=== PATIENT | female | born 1950 | race Caucasian/White ===

== ENCOUNTER 2019-03-27 12:28 | Inpatient (IN) ==
--- NOTE | 2019-03-27 06:29 | Discharge Summary ---
<Ayesha Tomas - Last Filed: 03/27/19 06:27> Date of Encounter: 03/27/19 - Hospital Course Hospital course: Ms. Mcintyre is a 69 year old female - Time Spent with Patient Total time spent providing and/or coordinating discharge services: - Discharge Medications Prescriptions: New Aspirin Enteric Coated [Aspirin EC] 325 mg PO BID 10 Days #20 tablet. Docusate Sodium [Colace] 100 mg PO BID 5 Days #10 capsule OxyCODONE Immed Rel [Roxicodone 5 MG] 5 mg PO Q6HR PRN 5 Days #20 tablet PRN Reason: Severe Pain Continued amLODIPine [Norvasc] 5 mg PO DAILY Tizanidine HCl 4 mg PO TID PRN PRN Reason: Muscle Spasm Omeprazole 20 mg PO DAILY Aspirin [Adult Aspirin] 81 mg PO DAILY Home Medications: Aspirin Enteric Coated [Aspirin EC] 325 mg PO BID 10 Days #20 tablet. 03/27/19 [Rx] Aspirin [Adult Aspirin] 81 mg PO DAILY 03/27/19 [History] Docusate Sodium [Colace] 100 mg PO BID 5 Days #10 capsule 03/27/19 [Rx] Omeprazole 20 mg PO DAILY 03/27/19 [History] OxyCODONE Immed Rel [Roxicodone 5 MG] 5 mg PO Q6HR PRN 5 Days #20 tablet 03/27/19 [Rx] Tizanidine HCl 4 mg PO TID PRN 03/27/19 [History] amLODIPine [Norvasc] 5 mg PO DAILY 03/27/19 [History] Allergies/Adverse Reactions: Allergy/AdvReac Type Severity Reaction Status Date / Time latex Allergy Rash Verified 03/27/19 12:53 Primary care physician: Jack Tapia MD - Patient Status Disposition: Home Health Service Condition: Good - Discharge Instructions Follow Up With: Ayesha Tomas PAC [Physician Networking Technology Instructor] - 04/06/19 9:15 am (Second appointment 04/14/19 @ 9:45am) Wayne Lozada MD [Partnered Physician] - 04/26/19 3:40 pm Additional Instructions: Discharge Instructions: Total Hip Replacement Please call [facility] ([phone]), your Primary Care Physician, or report to the Emergency Room if you have any of the following symptoms: Nausea, vomiting, fever greater that 101.5, swelling, chest pain, shortness of breath, increased pain/redness/drainage/odor for your incision site, numbness/tingling, or any other concerning symptoms. ACTIVITY:Weight-bearing as tolerated for 8 weeks with hip dislocation precautions that physical therapy taught you. You may progress as tolerated under the guidance of your physical therapist. You do not need to sleep with a pillow between your legs. You can also seep on the operative side or on your stomach. Incentive Spirometer 10 times an hour. MEDICATIONS: Upon discharge resume your home medications. Take all the medications as prescribed. Take a stool softener if taking narcotic pain medications. Stool softeners are only effective if you drink enough fluids. Drink 6-8 glass of water or fluids a day, unless this is not allowed for another health problem. Despite using stool softeners, if you haven't had a bowel movement in 3 days, please switch to a gentle laxative. Gentle laxatives are sold over the counter. You should have a bowel movement within 24 hours, if not call the office. You will be discharged from the hospital with a prescription for pain medication. You are encouraged to decrease the use of narcotic pain medication as tolerated. Should you require a refill, please call the office. [facility] prescribes narcotic pain medication for only 4-6 weeks after surgery. If you require pain medication beyond this time period, you may be referred to your Primary Care Physician or to the Pain Clinic for further evaluation. Plan ahead for refills on pain medication as many narcotics either need to be pi cked up at the office or mailed. It is best to call 48-72 hours in advance of needing a prescription refill so you don't run out of medication. To help control the post-operative pain, you may take NSAIDs (Aleve,Advil, Motrin, ibuprofen, naprosyn) or Tylenol as prescribed on the bottle in addition to the pain medication. ANTICOAGULATION (blood thinners): Continue your Aspirin, Lovenox or Coumadin as prescribed to help prevent a blood clot in the leg or in the lungs. As long as your incision remains dry and you tolerate the NSAIDs (Aleve, Advil, Motrin, Ibuprofen, Naprosyn), it is OK to use the NSAIDS while you are taking your anticoagulation medication. Should your incision start to drain, stop the NSAID and contact our office. Common symptoms of blood clot in the legs include: localized pain, swelling, calf tenderness, redness or discoloration of the skin. Blood clot in the lung symptoms include: shortness of breath, rapid pulse, sweating, and chest pain that worsens with deep breathing, coughing up blood, lightheadedness, feelings of anxiety. If you experience any of these symptoms notify your physician immediately, go to the emergency room, or if having trouble breathing, call 911. WOUND CARE: Leave the dressing on for 7 to 10days. You may change the dressing if it is saturated greater than 50%. Do not get the dressing wet at anytime. Wash your hands with antibacterial soap, rinse and dry prior to any wound care. If you have julius the visiting nurse or rehab facility can remove the stapes 10-14 days after surgery and place steri-strips across the wound. Leave the steri-strips in place until they fall off on their own. You may let water from the shower run on top of the steri-strips. If you do not have a visiting nurse or rehab facility, you will need to return to the office at 10-14 days for the julius to be removed. If you have itching or redness around the dressing call the office. FOLLOW-UP: Please follow up with your surgeon in the orthopedic clinic in 6 weeks from the day of surgery. If you have julius that need to be removed, you will need to come back to the office in 10-14 days from the day of surgery. <Ayesha Ware - Last Filed: 03/29/19 12:55> - NOTES TO OUTPATIENT PROVIDER Notes to Outpatient Provider: Home health to repeat CBC in 48 hrs to monitor Hgb/Hct Orders not resulted at time of discharge: Pending orders 03/27/19 01:00 XR hip complete RT [XR] Routine Hemoglobin and Hematocrit [HEME] Routine Date of Encounter: 03/29/19 Time of Encounter: 12:30 - Discharge Diagnosis (1) Status post total hip replacement, right Priority: Primary Status: Acute (2) Osteoarthritis of right hip Priority: Primary Status: Chronic Qualifiers: Osteoarthritis type: unspecified Qualified Code(s): M16.11 - Unilateral primary osteoarthritis, right hip (3) HTN (hypertension) Priority: Secondary Status: Chronic Qualifiers: Hypertension type: unspecified Qualified Code(s): I10 - Essential (primary) hypertension (4) Obesity (BMI 30-39.9) Priority: Secondary Status: Chronic (5) History of DVT (deep vein thrombosis) Priority: Secondary Status: Chronic - Hospital Course Hospital course: Ms. Mcintyre is a 69 year old female s/p right THR 03/27/19 with medical history of HTN, obesity and h/o DVT. She participated in therapy and had an uneventful hospital course. She is stable for discharge and will follow up in [facility] office next week. PCR - POD#2 s/p right THR 03/27/19 Patient seen at bedside, without complaints. A&O x 3. States she is feeling really well and better than even before surgery. Afebrile, vital signs stable. Labs reviewed. H/H - 9.3/29.1 decreased from yesterday, asymptomatic. Will have repeat labs in 48 hrs to monitor. WBC/neutrophils improved Pain control: adequate Participating in PT. All questions and concerns addressed. Educated on use of incentive spirometer. Encouraged ambulation and proper hydration. Patient educated on post-operative restrictions and post-operative care. Assessment and plan: Continue with postoperative care Discharge plan: Home with home health today - Time Spent with Patient Total time spent providing and/or coordinating discharge services: Date of admission: 03/27/19 Primary care physician: Jack Tapia MD Consults: 03/27/19 17:24 Consult to Nurse Navigator [CONS] Routine Comment: ortho navigator Consult to Nutrition [CONS] Routine Comment: Consulting Provider: NUTRITION Reason for Dietary Consult: Other Other:: Proper nutrition to facilitate wound healing Consult to Occupational Therapy [CONS] Routine Comment: Evaluate, develop and implement POC Reason for Consult: total hip replacement Does patient have active BEDREST order?: No Is patient medically & hemodynamically stable?: Yes Consult to Physical Therapy [CONS] Routine Comment: Evaluate, develop and implement POC Reason for Consult: total hip replacement Does patient have active BEDREST order?: No Is patient medically & hemodynamically stable?: Yes Consult to Car Greaser [CONS] Routine Reason for SW Consult: post op joint replacement RT Post Op Consult [CONS] Routine Discharging clinician: Wayne Lozada Anticipated date of discharge: 03/29/19 Labs on day of discharge: Short CBC 03/29/19 Range/Units 03:31 WBC 12.1 H (4.3-11.1) K/mcL Hgb 9.3 L D (11.5-15.4) g/dL Hct 29.1 L (35.3-44.9) % Plt Count 222 (140-400) K/mcL Neutrophils # 7.8 (1.6-8.9) K/mcL BMP 03/29/19 Range/Units 03:31 Sodium 143 (136-145) mEq/L Potassium 3.8 (3.5-5.1) mEq/L Chloride 105 (98-107) mEq/L Carbon Dioxide 27 (23-29) mEq/L BUN 16 (8-23) mg/dL Creatinine 0.83 (0.60-1.20) mg/dL Glucose 138 H (70-105) mg/dL Calcium 8.3 L (8.6-10.3) mg/dL - Impressions Hip X-Ray 03/27/19 01:00 IMPRESSION: Total hip arthropasty without acute hardware complication. D/ / Collins Puckett MD / Collins Puckett MD Interpreting Provider: Collins Puckett MD - Patient Status Functional capacity at discharge: uses cane/walker Overall status at discharge: patient is progressing back to baseline - Diet and Activity Activity: ambulate only with your walker, as per physical therapy Diet: advance to your usual diet
--- NOTE | 2019-03-27 12:24 | Physician Discharge Referral ---
Home Health/Hosp Referral Info Transfer to: Home Health Attending Provider: Dr. Lozada - Diagnosis (1) Status post total hip replacement, right Priority: Primary Status: Acute (2) Osteoarthritis of right hip Priority: Primary Status: Chronic (3) HTN (hypertension) Priority: Secondary Status: Chronic (4) Obesity (BMI 30-39.9) Priority: Secondary Status: Chronic (5) History of DVT (deep vein thrombosis) Priority: Secondary Status: Chronic - Respiratory Orders None Smoking Cessation: Smoking cessation has been advised. For more information, call the [place] Tobacco Quit Line at 0-014-FKQU-NOW. - Diet/Nutrition Diet/Nutrition Orders: Regular - Activity Activity Orders: Ambulate, Chair, Walker - Services Needed Following services are medically necessary services: Nursing, Home Health Aide, Physical Therapy, Occupational Therapy Home Care Orders: Opsite dressing, leave intact until first post-operative visit. If dressing becomes >50% saturated, contact office, remove dressing and place appropriate dressing in its place. Do not allow for dressing to get wet. Zipline/Nome in place, plan to remove at post-operative day #14-16. Total Joint Precautions x 6 weeks Apply cold therapy wrap 3-6x/day for 20 minutes at a time. Encourage ambulation throughout the day Use Incentive spirometer 10x/hour. Elevate affected extremity above heart as tolerated. Brace: Wear hip abductor brace at night x 6 weeks. * Repeat CBC in 48 hrs monitoring Hgb/Hct - Transfer Medications Home Medications: Aspirin Enteric Coated [Aspirin EC] 325 mg PO BID 10 Days #20 tablet. 03/27/19 [Rx] Aspirin [Adult Aspirin] 81 mg PO DAILY 03/27/19 [History] Docusate Sodium [Colace] 100 mg PO BID 5 Days #10 capsule 03/27/19 [Rx] Omeprazole 20 mg PO DAILY 03/27/19 [History] OxyCODONE Immed Rel [Roxicodone 5 MG] 5 mg PO Q6HR PRN 5 Days #20 tablet 03/27/19 [Rx] Tizanidine HCl 4 mg PO TID PRN 03/27/19 [History] amLODIPine [Norvasc] 5 mg PO DAILY 03/27/19 [History] Allergies/Adverse Reactions: Allergy/AdvReac Type Severity Reaction Status Date / Time latex Allergy Rash Verified 07/01/19 12:53 Certification: Further, I certify that my clinical findings support that this patient is homebound (i.e. absences from home require considerable and taxing effort and are for medical reasons or rastafari services or infrequently or short duration when for other reasons) because: Homebound Reason: Post-surgery restriction and or conditions limit ability to leave home Attestation: My signature below is to certify that this patient is under my care and that I, or nurse practitioner, or a physician hospital medical assistant working with me, has a [id number] encounter with this patient.
[2019-03-27] MEDS ORDERED: CeFAZolin Syr 2,000MG/20 ML 2,000 MG/20 ML SYRINGE IVPB ONE (12:55)
[2019-03-27] MEDS ORDERED: Ringers Solution, Lactated 1,000 ML IVC SCH ×2 (13:00→13:45)
--- NOTE | 2019-03-27 13:01 | History & Physical Report ---
Date of Encounter: 03/27/19 Time of Encounter: 13:00 24 Hour HP Update - Instructions Instructions: If the History and Physical is less than 30 days old and was completed prior to A.M. admission and or procedure and has NOT been updated on calendar day of procedure please complete this update prior to performing procedure. - Update Patient reports changes in Medical Condition: No Changes in examination, assessment, or condition: No Changes in Medication: No Preop tests/diagnostics Reviewed: Yes Surgery Remains Indicated: Yes Consent for Planned Operative Procedure(s) Verified: Yes - Pre-Operative Checklist Preoperative Checklist Indicated: No Prophylactic Antibiotic Ordered: Yes Is VTE Prophylaxis Indicated?: Yes
--- NOTE | 2019-03-27 13:03 | Anesthesia Evaluation PreOp ---
Date of Encounter: 03/27/19 Time of Encounter: 13:01 - Past History Planned Operation: Right Robotic total hip arthroplasty Cardiac History: HTN Pulmonary History: Denies Any Significant HX TEACHER EDUCATION INSTRUCTOR History: Denies Any Significant HX Other Medical History: GERD, Other (hx of dvt, hyperkalemia) Anesthesia History: No Prior Anesthetic Complications, Past Anesthesia (bunion correction, shivani) Alcohol Use: none Drug use: none Medications and Allergies Aspirin Enteric Coated [Aspirin EC] 325 mg PO BID 10 Days #20 tablet. 03/27/19 [Rx] Aspirin [Adult Aspirin] 81 mg PO DAILY 03/27/19 [History] Docusate Sodium [Colace] 100 mg PO BID 5 Days #10 capsule 03/27/19 [Rx] Omeprazole 20 mg PO DAILY 03/27/19 [History] OxyCODONE Immed Rel [Roxicodone 5 MG] 5 mg PO Q6HR PRN 5 Days #20 tablet 03/27/19 [Rx] Tizanidine HCl 4 mg PO TID PRN 03/27/19 [History] amLODIPine [Norvasc] 5 mg PO DAILY 03/27/19 [History] Allergy/AdvReac Type Severity Reaction Status Date / Time latex Allergy Rash Verified 03/27/19 12:53 - Meds/Allergy Pre-op Review Medications Reviewed: Yes Allergies Reviewed: Yes Beta Blockers on Current Med List: No Anesthesia Results - Labs Laboratory Tests 03/20/19 03/20/19 10:35 10:35 WBC 13.4 H Hgb 15.0 Hct 47.2 H Plt Count 350 Sodium 141 Potassium 5.4 H Chloride 105 Carbon Dioxide 28 BUN 12 Creatinine 0.72 - Imaging EKG: report reviewed ( Interpretive Statements SINUS RHYTHM Electronically Signed On 03-22-2019 12:38:14 EDT by Deejay Lema) Anesthesia Exam Vital Signs/O2 Sat, Most Current Temp Pulse Resp BP Pulse Ox 98.8 F 112 18 144/87 95 03/27/19 12:51 03/27/19 12:51 03/27/19 12:51 03/27/19 12:51 03/27/19 12:51 - HEENT Pupil (Motor): Pupils equal, EOMI Mallampati: II Teeth: Edentulous Oral Opening: Greater than 3 - TEACHER EDUCATION INSTRUCTOR LOC: Oriented TEACHER EDUCATION INSTRUCTOR Motor: Normal RUE, Normal LUE, Normal RLE, Normal LLE, Normal Face TEACHER EDUCATION INSTRUCTOR Sensory: Normal: RUE, LUE, RLE, LLE, Face - Cardiac Rhythm: Regular - Pulmonary Breath Sounds: bilateral Clear Respiratory Effort: Symmetrical Anesthesia Assess/Plan ASA Score: 2 Level of consciousness: Cooperative Anesthetic Plan: General Reason for No Neuroaxial/Regional Block: Patient refusal Monitoring Plan: Standard Monitors Recovery Plan: PACU
[2019-03-27] MEDS ORDERED: *HR* FentaNYL (PF) 100 MCG/2 ML VIAL ONE ×2 (13:04→15:16)
[2019-03-27] MEDS ORDERED: *HR* Succinylcholine 200 MG/10 ML VIAL IVP ONE (13:04)
[2019-03-27] MEDS ORDERED: *HR* Propofol 200 MG/20 ML VIAL IVP ONE (13:05)
[2019-03-27] MEDS ORDERED: *HR* Midazolam HCl 2 MG/2 ML VIAL ONE (13:05)
[2019-03-27] MEDS ORDERED: Lidocaine -MPF 2% 2 ML VIAL ONE ×2 (13:10→15:11)
[2019-03-27] MEDS ORDERED: Ondansetron 4 MG/2 ML VIAL ONE (13:10)
[2019-03-27] MEDS ORDERED: Celecoxib 200 MG CAPSULE PO ONE (13:32)
[2019-03-27] MEDS ORDERED: *HR* OxyCODONE ER (12 HR) 10 MG TABLET PO ONE (13:32)
[2019-03-27] MEDS ORDERED: Gabapentin 300 MG CAPSULE PO ONE (13:32)
[2019-03-27] MEDS ORDERED: Acetaminophen IV 1,000 MG/100 ML INFUS..BTL IVPB ONE (13:32)
[2019-03-27] MEDS ORDERED: *HR* Meperidine 25 MG/ML SYRINGE IVP PRN (13:34)
[2019-03-27] MEDS ORDERED: *HR* Promethazine 25 MG/ML VIAL IVP PRN ×2 (13:34→17:24)
[2019-03-27] MEDS ORDERED: *HR* HYDROmorphone (PF) 1 MG/ML SYRINGE IVP PRN (13:34)
[2019-03-27] MEDS ORDERED: Ondansetron 4 MG/2 ML VIAL IVP ONE (13:34)
[2019-03-27] MEDS ORDERED: *HR* Rocuronium Bromide 50 MG/5 ML VIAL ONE (13:34)
[2019-03-27] MEDS ORDERED: Lidocaine -MPF 4% 5 ML AMPUL ONE (13:35)
[2019-03-27] MEDS ORDERED: Ethanol\\Acetic Acid\\Na Ace\\Ben 1,000 ML IRRIG.SOLN IR ONE (13:41)
[2019-03-27] MEDS ORDERED: Dexamethasone 4 MG/ML VIAL ONE (14:59)
[2019-03-27] MEDS ORDERED: *HR* HYDROMORPHONE 2 MG/ML VIAL ONE (15:16)
[2019-03-27] MEDS ORDERED: Ketorolac 30 MG/ML VIAL ONE (15:18)
[2019-03-27] MEDS ORDERED: Neostigmine Methylsulfate 3 MG/3 ML SYRINGE ONE (15:39)
--- NOTE | 2019-03-27 15:52 | Orthopedic Operative Note ---
Date of procedure: 03/27/19 Pre-op diagnosis: Right hip arthritis Post-op diagnosis: same Procedure: Procedure: Right Total Hip Replacment robotic-assisted Estimated blood loss: 200 cc Hardware: Metal and polyethylene replacement. Yelena DM Cup: 48 cup Femoral size 4 Anato antevertedstem Head: 8 head with Jamila Procedural Notes: Grade 4 arthritic changes femoral head acetabular socket, procedure performed with robotic assistance. 6 mm short operative versus nonoperative leg as measured by preoperative CT scan Operative procedure: The patient was brought to the operating room and placed on the operating room table. After general anesthesia was administered the patient was placed in the lateral decubitus position with the operative leg up. All pressure points were padded appropriately and the head was stabilized in the neutral position. The operative extremity was prepped and draped in the sterile surgical fashion patient received IV antibiotic prior to skin incision. 3 Steinmann pins were placed in the iliac crest 3 cm proximal to the anterior superior iliac spine this was for the robotic-assisted sensor. This was done through a small 2 cm incision. A standard posterior approach is made to the operative hip, the incision was made through the skin and subcutaneous tissue hemostasis was obtained with Bovie cautery. Using careful sharp dissection the fascia was identified and incised exposing the external rotators. The greater trochanter was marked, and length was measured at this time utilizing robotic assistance. The external rotators were released off the greater trochanter and tagged with #2 FiberWire suture. The capsule was T'd open and the hip was brought into internal rotation. Patient noted to have grade 4 arthritic changes femoral head. The femoral neck cut was made at the appropriate level roughly 15 mm proximal to the lesser trochanter aced on preoperative templating. An anterior capsulotomy was performed for the anterior retractor. Soft tissues removed from the acetabulum. Patient noted to have grade 4 arthritic changes acetabulum. The acetabulum reference point was confirmed. The acetabulum was then mapped with robotic assistance. Based on the preoperative plan the acetabulum was reamed in one step with a 48 reamer. The 48 acetabulum was impacted with robotic assistance and 39 degrees of abduction and 25 degrees of anteversion. The hip was brought back in to internal rotation and prepared with the box truck driver followed by the canal finder followed by the reaming process to a size 12 broaching process in 20 degrees anteversion. It was broached up to the appr opriate size 4 Trial reduction revealed leg lengths close to normal. The femoral implant was impacted in place in 20 degrees of anteversion. Trial reduction found the hip to be stable with 8 head and Jamila. The trials were removed and the real implants were impacted in place. The hip was reduced, patient had robotic confirmed leg length of 10 mm longer than the contralateral side. The hip had excellent stability with forward flexion to 90 degrees adduction of 30 degrees and internal rotation of 60 degrees. The hip had no shuck. The hip sat with an antibacterial solution. It was irrigated out with 2 L of pulse irrigation. The Steinmann pins were removed. The hip was closed by the PA. The deep tissue was irrigated and closed deep with #1 PDS suture superficially with 0 PDS suture and skin was closed with Dermabond and zip tie. The patient was placed in a sterile dressing and abduction pillow. The patient was extubated and transferred to the recovery room in stable condition. Anesthesia: GETA Surgeon: Wayne Lozada Was there an instructional support assistant present: Yes Manager Of Organizational Development: Ayesha Tomas Estimated blood loss (cc): 200 Condition: stable Disposition: PACU
--- NOTE | 2019-03-27 17:05 | Anesthesia Evaluation Post Op ---
Date of Encounter: 03/27/19 Time of Encounter: 17:04 - Vital Signs Vital Signs: Vital Signs/O2 Sat, Most Current Temp Pulse Resp BP Pulse Ox 98.6 F 76 15 128/68 96 03/27/19 16:48 03/27/19 16:48 03/27/19 16:48 03/27/19 16:48 03/27/19 16:48 - Lungs Lungs: Clear Ascult./Percussion - Cardiovascular Regular Rate - Mental Status Mental Status: Alert & Oriented, Answers Appropriately - Pain Pain Scale: 0 Pain Scale used: Numeric (1 - 10) - Nausea Vomiting Nausea Vomiting: Not Present - Hydration Hydration: Ice chips - Discharge PostOp Status: Transfer Patient to floor
[2019-03-27 17:17] LABS: Hematocrit 37.6 % (35.3-44.9); Hemoglobin 11.9 g/dL (11.5-15.4)
[2019-03-27] MEDS ORDERED: HYDROcodone BIT/Homatropine 5 MG TABLET PO PRN (17:24)
[2019-03-27] MEDS ORDERED: Ondansetron 4 MG/2 ML VIAL IVP PRN (17:24)
[2019-03-27] MEDS ORDERED: MOM Conc 10 ML UD.LIQ PO PRN (17:24)
[2019-03-27] MEDS ORDERED: Naloxone 0.4 MG/ML INJ IVP PRN (17:24)
[2019-03-27] MEDS ORDERED: traMADol 50 MG TABLET PO PRN (17:24)
[2019-03-27] MEDS ORDERED: Sennosides 8.6 MG TABLET PO PRN (17:24)
[2019-03-27] MEDS ORDERED: Temazepam 15 MG CAPSULE PO PRN (17:24)
[2019-03-27] MEDS ORDERED: tiZANidine 4 MG TABLET PO PRN (17:24)
[2019-03-27] MEDS ORDERED: *HR* Enoxaparin 30 MG/0.3 ML SYRINGE SQ SCH (18:00)
[2019-03-27] MEDS: *HR* Enoxaparin 30 MG/0.3 ML SYRINGE SQ SCH (18:24)
[2019-03-27] MEDS: *HR* OxyCODONE Immed Rel 5 MG TABLET PO PRN (18:24)
[2019-03-27] MEDS: Ascorbic Acid 500 MG TABLET PO SCH (18:24)
[2019-03-27] MEDS: Ringers Solution, Lactated 1,000 ML IVC SCH (19:49)
[2019-03-27] MEDS: Gabapentin 300 MG CAPSULE PO SCH (21:22)
[2019-03-28 01:29] LABS: Basophils % 0.2 %; Hematocrit 33.3 % (35.3-44.9); Hemoglobin 10.8 g/dL (11.5-15.4); Immature Granulocytes % 0.6 % (0-4); Lymphocytes % 6.4 %; Mean Corpuscular HGB Conc 32.4 g/dL (31.6-35.5); Mean Corpuscular Hemoglobin 29.8 pg (28.0-33.3); Mean Platelet Volume 10.2 fL (9.4-12.4); Monocytes # 0.8 K/mcL (0.0-1.3); Neutrophils # 14.1 K/mcL (1.6-8.9); Platelet Count 255 K/mcL (140-400); Red Blood Count 3.62 M/mcL (3.82-4.97); Red Cell Distribution Width 12.1 % (11.5-14.5); Segmented Neutrophils % 87.8 %
[2019-03-28 01:45] LABS: BUN/Creatinine Ratio 15 (6-26); Blood Urea Nitrogen 13 mg/dL (8-23); Calcium 8.4 mg/dL (8.6-10.3); Carbon Dioxide 26 mEq/L (23-29); Chloride 105 mEq/L (98-107); Glucose 169 mg/dL (70-105); Osmolality,Calculated 288 (280-300); Potassium 4.7 mEq/L (3.5-5.1); Sodium 137 mEq/L (136-145); eGFR For African Americans > 60 (> 60); eGFR For Non-African Americans > 60 (> 60)
[2019-03-28] MEDS: *HR* OxyCODONE Immed Rel 5 MG TABLET PO PRN ×3 (03:53→23:07)
[2019-03-28] MEDS: *HR* Enoxaparin 30 MG/0.3 ML SYRINGE SQ SCH ×2 (06:06→18:06)
[2019-03-28] MEDS ORDERED: CefTRIAXone 1,000 MG VIAL IM ONE (06:36)
--- NOTE | 2019-03-28 06:37 | Orthopedics Progress Note ---
Date of Encounter: 03/28/19 Time of Encounter: 06:37 Subjective Interval history: Patient was seen this morning doing well without complaints. Afebrile vital signs stable. Operative extremity: Neurovascularly intact Dressing clean dry and intact Calves nontender Assessment and plan: Continue with postoperative care Hematocrit 33 Objective Vital signs: Vital Signs Temp Pulse Resp BP Pulse Ox 03/28/19 04:07 98.9 F 63 15 116/69 92 03/27/19 23:18 99.4 F 75 16 101/60 96 03/27/19 19:56 99.3 F 89 16 115/70 98 03/27/19 18:54 98.3 F 82 14 120/57 95 03/27/19 17:54 97.7 F 80 12 128/76 96 03/27/19 17:28 95 03/27/19 17:20 98.1 F 72 14 126/77 97 03/27/19 16:48 98.6 F 76 15 128/68 96 03/27/19 16:38 72 14 130/70 97 03/27/19 16:28 91 15 143/71 95 03/27/19 16:18 100.2 F H 84 16 156/77 97 03/27/19 12:51 98.8 F 112 18 144/87 95 Intake and Output 03/27/19 03/27/19 03/28/19 15:59 23:59 07:59 Intake Total 1120 / 1220 100 / 1220 50 / 50 Output Total 200 / 200 Balance 920 / 1020 100 / 1020 50 / 50 Intake: IV Fluids 1120 / 1220 100 / 1220 50 / 50 Lactated Ringers 1,000 ML @ 25 1000 / 1000 mls/hr IVC .Q24H [facility] Rx#: [id number] Ofirmev 1,000 mg/100 ml 1,000 100 / 100 mg In 100 ml @ 400 mls/hr IVPB ONCE ONE Rx#:[id number] Ancef Syringe 2,000 MG/20 ML 2, 20 / 20 000 mg In 20 ml @ 200 mls/hr IVPB PREOP ONE Rx#:[id number] Ancef 2,000 MG In 0.9 % Sodium 100 / 100 50 / 50 Chloride 100 ML @ 200 mls/hr IVPB Q8H [facility] Rx#:[id number] Output: Estimated Blood Loss 200 / 200 Other: # Voids 1 1 Weight 88.451 kg 88.5 kg Patient Weight 03/28/19 23:59 Weight 88.5 kg - Labs CBC & BMP: 03/28/19 01:14 03/28/19 01:14 Labs: Abnormal lab results WBC 16.0 K/mcL (4.3-11.1) H 03/28/19 01:14 RBC 3.62 M/mcL (3.82-4.97) L 03/28/19 01:14 Hgb 10.8 g/dL (11.5-15.4) L 03/28/19 01:14 Hct 33.3 % (35.3-44.9) L 03/28/19 01:14 14.1 K/mcL (1.6-8.9) H 03/28/19 01:14 Glucose 169 mg/dL (70-105) H 03/28/19 01:14 Calcium 8.4 mg/dL (8.6-10.3) L 03/28/19 01:14 Consult Discharge Plan - Plan Referrals: Jack Tapia MD [Primary Care Provider] -
[2019-03-28] MEDS: Ascorbic Acid 500 MG TABLET PO SCH ×2 (07:58→16:00)
[2019-03-28] MEDS: Aspirin Enteric Coated 81 MG Tablet PO SCH (07:58)
[2019-03-28] MEDS: Gabapentin 300 MG CAPSULE PO SCH ×3 (07:58→20:21)
[2019-03-28] MEDS: amLODIPine 5 MG TABLET PO SCH (07:59)
[2019-03-28] MEDS: Multivit/Ca/Min/Fe/FA 1 TAB TABLET PO SCH (07:59)
[2019-03-28] MEDS: Ringers Solution, Lactated 1,000 ML IVC SCH (10:39)
--- NOTE | 2019-03-28 14:48 | Event Note ---
Date of Encounter: 03/28/19 Time of Encounter: 11:30 PCR - POD#1 s/p right THR 03/27/19 Patient seen at bedside, without complaints. A&O x 3 Afebrile, vital signs stable. Labs reviewed. H/H - 10.8/33.3 stable, asymptomatic Will continue to monitor elevation in WBC/neutrophils - expect to decrease tomorrow Pain control: adequate Participating in PT. All questions and concerns addressed. Educated on use of incentive spirometer. Encouraged ambulation and proper hydration. Patient educated on post-operative restrictions and post-operative care. Assessment and plan: Continue with postoperative care Discharge plan: Home with home health possibly tomorrow
[2019-03-29] MEDS: *HR* OxyCODONE Immed Rel 5 MG TABLET PO PRN ×3 (03:38→12:59)
[2019-03-29 04:50] LABS: Basophils # 0.1 K/mcL (0.0-0.2); Basophils % 0.4 %; Eosinophils # 0.2 K/mcL (0.0-0.6); Eosinophils % 1.6 %; Hematocrit 29.1 % (35.3-44.9); Hemoglobin 9.3 g/dL (11.5-15.4); Immature Granulocytes % 0.6 % (0-4); Lymphocytes # 2.3 K/mcL (0.6-4.6); Lymphocytes % 18.9 %; Mean Corpuscular Hemoglobin 30.2 pg (28.0-33.3); Mean Corpuscular Volume 94.5 fL (83.0-100.0); Mean Platelet Volume 10.4 fL (9.4-12.4); Monocytes # 1.7 K/mcL (0.0-1.3); Neutrophils # 7.8 K/mcL (1.6-8.9); Platelet Count 222 K/mcL (140-400); Red Blood Count 3.08 M/mcL (3.82-4.97); Red Cell Distribution Width 12.5 % (11.5-14.5); Segmented Neutrophils % 64.5 %; White Blood Count 12.1 K/mcL (4.3-11.1)
[2019-03-29 05:09] LABS: BUN/Creatinine Ratio 19 (6-26); Blood Urea Nitrogen 16 mg/dL (8-23); Calcium 8.3 mg/dL (8.6-10.3); Carbon Dioxide 27 mEq/L (23-29); Chloride 105 mEq/L (98-107); Glucose 138 mg/dL (70-105); Osmolality,Calculated 299 (280-300); Potassium 3.8 mEq/L (3.5-5.1); Sodium 143 mEq/L (136-145); eGFR For African Americans > 60 (> 60); eGFR For Non-African Americans > 60 (> 60)
[2019-03-29] MEDS: *HR* Enoxaparin 30 MG/0.3 ML SYRINGE SQ SCH (05:20)
[2019-03-29] MEDS: amLODIPine 5 MG TABLET PO SCH (08:02)
[2019-03-29] MEDS: Aspirin Enteric Coated 81 MG Tablet PO SCH (08:27)
[2019-03-29] MEDS: Ascorbic Acid 500 MG TABLET PO SCH (08:28)
[2019-03-29] MEDS: Multivit/Ca/Min/Fe/FA 1 TAB TABLET PO SCH (08:28)
[2019-03-29] MEDS: Gabapentin 300 MG CAPSULE PO SCH (08:28)
[2019-03-29 11:17] VITALS: BP 134/77
--- NOTE | 2019-03-29 11:46 | Orthopedics Progress Note ---
Date of Encounter: 03/29/19 Time of Encounter: 11:45 - Assessment and Plan (1) Acute blood loss anemia Current Visit: Yes Status: Acute Subjective Interval history: Patient was seen this morning doing well without complaints. Afebrile vital signs stable. Operative extremity: Neurovascularly intact Dressing clean dry and intact Calves nontender Assessment and plan: Continue with postoperative care Plan for discharged today Objective Vital signs: Vital Signs Temp Pulse Resp BP Pulse Ox 03/29/19 11:15 97.5 F L 81 18 134/77 96 03/29/19 06:55 98.2 F 85 18 108/69 93 03/29/19 03:35 97.3 F L 67 18 119/73 94 03/29/19 00:03 98.2 F 74 17 102/49 95 03/28/19 19:57 99.2 F 80 16 122/69 92 03/28/19 15:28 99 F 83 15 114/66 95 Intake and Output 03/28/19 03/29/19 03/29/19 23:59 07:59 15:59 Intake Total 170 / 580 240 / 240 Balance 170 / 580 240 / 240 Intake: Oral 170 / 530 240 / 240 Other: Meal Dinner Breakfast Percent of Meal Consumed 75% 20% # Voids 1 1 - Labs CBC & BMP: 03/29/19 03:31 03/29/19 03:31 Labs: Abnormal lab results WBC 12.1 K/mcL (4.3-11.1) H 03/29/19 03:31 RBC 3.08 M/mcL (3.82-4.97) L 03/29/19 03:31 Hgb 9.3 g/dL (11.5-15.4) L D 03/29/19 03:31 Hct 29.1 % (35.3-44.9) L 03/29/19 03:31 14.1 K/mcL (1.6-8.9) H 03/28/19 01:14 1.7 K/mcL (0.0-1.3) H 03/29/19 03:31 Glucose 138 mg/dL (70-105) H 03/29/19 03:31 Calcium 8.3 mg/dL (8.6-10.3) L 03/29/19 03:31 - VTE Documentation of Mechanical Device: Venous foot pump, device Consult Discharge Plan - Plan Referrals: Jack Tapia MD [Primary Care Provider] -
== END 2019-03-29 13:40 | disposition home health service (06) | DRG 470 ==
LOC: SAMDAY 12:28 → 3NENU 16:51
PROVIDERS: ADMIT Orthopaedic Surgery; ATTEND Orthopaedic Surgery

== ENCOUNTER 2022-05-06 06:20 | Observation (INO) ==
[2022-05-06] MEDS ORDERED: Famotidine 20 MG/2 ML VIAL IVP ONE (06:30)
[2022-05-06] MEDS ORDERED: Acetaminophen IV 1,000 MG/100 ML BAG IVPB ONE (06:30)
[2022-05-06] MEDS ORDERED: tiZANidine 4 MG TABLET PO SCH (06:30)
[2022-05-06] MEDS ORDERED: Celecoxib 100 MG CAPSULE PO ONE (06:30)
[2022-05-06] MEDS ORDERED: CeFAZolin Syr 2,000MG/20 ML 2,000 MG/20 ML SYRINGE IVPB ONE (06:47)
[2022-05-06] MEDS ORDERED: *HR* FentaNYL (PF) 100 MCG/2 ML VIAL ONE ×2 (06:59→11:05)
[2022-05-06] MEDS ORDERED: Lidocaine -MPF 2% 5 ML VIAL ONE (06:59)
[2022-05-06] MEDS ORDERED: *HR* Rocuronium Bromide 50 MG/5 ML VIAL ONE (06:59)
[2022-05-06] MEDS ORDERED: *HR* Propofol 200 MG/20 ML VIAL IVP ONE (06:59)
[2022-05-06] MEDS ORDERED: *HR* Succinylcholine 200 MG/10 ML VIAL IVP ONE (06:59)
[2022-05-06] MEDS ORDERED: Ondansetron 4 MG/2 ML VIAL ONE (06:59)
[2022-05-06] MEDS ORDERED: *HR* Remifentanil 2 MG VIAL IVP ONE (06:59)
[2022-05-06] MEDS ORDERED: Lidocaine HCL 4 ML Topical Solution (Laryng-O-Jet Kit Sterile Pak) TP ONE (06:59)
[2022-05-06] MEDS ORDERED: Vancomycin 1,250 MG/262.5 ML IV.SOLN IVPB ONE (07:00)
[2022-05-06] MEDS ORDERED: Ringers Solution, Lactated 1,000 ML IVC SCH (07:00)
[2022-05-06] MEDS ORDERED: *HR* Phenylephrine 10 MG/ML VIAL ONE (07:07)
[2022-05-06] MEDS ORDERED: Ondansetron 4 MG/2 ML VIAL IVP PRN ×2 (07:08→13:01)
[2022-05-06] MEDS ORDERED: *HR* OxyCODONE Immed Rel 5 MG TABLET PO PRN (07:08)
[2022-05-06] MEDS ORDERED: *HR* FentaNYL (PF) 100 MCG/2 ML VIAL IVP PRN (07:08)
[2022-05-06] MEDS ORDERED: Vancomycin 1,000 MG VIAL ONE (07:18)
[2022-05-06] MEDS ORDERED: Ketamine HCL *QUVA* 50mg (1mL) SYRINGE ONE (07:19)
[2022-05-06] MEDS ORDERED: *HR* Midazolam HCl 2 MG/2 ML VIAL ONE (07:27)
[2022-05-06] MEDS ORDERED: EPHEDrine 50 MG/ML VIAL ONE (08:01)
[2022-05-06] MEDS ORDERED: Ringers Solution, Lactated 1,000 ML ONE (11:52)
[2022-05-06] MEDS: *HR* HYDROmorphone PF 0.5 MG/0.5 ML SYRINGE IVP PRN ×2 (12:19→12:29)
[2022-05-06] MEDS ORDERED: Naloxone 0.4 MG/ML INJ IVP PRN (13:01)
[2022-05-06] MEDS ORDERED: tiZANidine 4 MG TABLET PO PRN (13:01)
[2022-05-06] MEDS ORDERED: diazePAM 5 MG TABLET PO PRN (14:42)
[2022-05-06] MEDS: Ringers Solution, Lactated 1,000 ML IVC SCH ×2 (14:53→22:41)
[2022-05-06] MEDS: CeFAZolin 2 GM/120 ML BAG IVPB SCH (15:32)
[2022-05-06 17:23] LABS: Basophils % 0.3 %; Eosinophils % 0.1 %; Hematocrit 34.6 % (35.3-44.9); Hemoglobin 11.1 g/dL (11.5-15.4); Immature Granulocytes % 1.1 % (0-4); Lymphocytes # 1.4 K/mcL (0.6-4.6); Mean Corpuscular HGB Conc 32.1 g/dL (31.6-35.5); Mean Corpuscular Hemoglobin 29.6 pg (28.0-33.3); Mean Corpuscular Volume 92.3 fL (83.0-100.0); Mean Platelet Volume 10.3 fL (9.4-12.4); Monocytes # 0.5 K/mcL (0.0-1.3); Neutrophils # 13.4 K/mcL (1.6-8.9); Nucleated Red Blood Cells 0.2 /100 WBC (0); Platelet Count 202 K/mcL (140-400); Red Blood Count 3.75 M/mcL (3.82-4.97); Red Cell Distribution Width 12.8 % (11.5-14.5); Segmented Neutrophils % 86.5 %; White Blood Count 15.5 K/mcL (4.3-11.1)
[2022-05-06 17:43] LABS: Basophils # 0.1 K/mcL (0.0-0.2)
[2022-05-06 18:16] LABS: Calcium 8.1 mg/dL (8.6-10.3); Potassium 5.1 mEq/L (3.5-5.1)
[2022-05-06] MEDS ORDERED: Ketorolac 30 MG/ML VIAL IVP ONE (18:48)
[2022-05-06] MEDS: *HR* HYDROcodone/Acet 5/325 mg TABLET PO PRN (20:20)
[2022-05-06] MEDS: Temazepam 15 MG CAPSULE PO PRN (21:13)
[2022-05-07] MEDS: CeFAZolin 2 GM/120 ML BAG IVPB SCH (00:38)
[2022-05-07] MEDS: Acetaminophen 325 MG TABLET PO PRN (00:38)
[2022-05-07] MEDS: *HR* OxyCODONE Immed Rel 5 MG TABLET PO PRN ×3 (06:17→20:13)
[2022-05-07] MEDS: Aspirin Enteric Coated 81 MG Tablet PO SCH (08:36)
[2022-05-07] MEDS: amLODIPine 5 MG TABLET PO SCH (08:36)
[2022-05-07] MEDS: Loratadine 10 MG TABLET PO SCH (08:36)
[2022-05-07] MEDS: *HR* HYDROcodone/Acet 5/325 mg TABLET PO PRN (09:57)
[2022-05-07] MEDS: Temazepam 15 MG CAPSULE PO PRN (20:14)
[2022-05-08] MEDS: *HR* OxyCODONE Immed Rel 5 MG TABLET PO PRN ×4 (00:38→17:28)
[2022-05-08] MEDS: Acetaminophen 325 MG TABLET PO PRN ×3 (02:47→16:10)
[2022-05-08] MEDS: amLODIPine 5 MG TABLET PO SCH (08:12)
[2022-05-08] MEDS: Loratadine 10 MG TABLET PO SCH (08:12)
[2022-05-08] MEDS: Aspirin Enteric Coated 81 MG Tablet PO SCH (08:12)
[2022-05-08 15:29] VITALS: BP 107/57; PULSE 69; TEMP 98.2; O2SAT 98
== END 2022-05-08 19:08 | disposition home or self-care (01) ==
LOC: 4WAOSI 06:20 → SDCAOSI 06:20 → 4WAOSI 13:05
PROVIDERS: ADMIT Orthopaedic Surgery Orthopaedic Surgery of the Spine; ATTEND Orthopaedic Surgery Orthopaedic Surgery of the Spine